=== PATIENT | male | born 1970 | race Two or more races ===

== ENCOUNTER 2021-07-30 08:00 | Outpatient (CLI) | payer OTHER ==
[~2021-07-30 08:00] MED LIST: AVAPRO150 MG PO; SIMVASTATIN10 MG PO; TOPROL XL50 MG PO
== END 2021-07-30 09:00 | disposition home or self-care (01) ==
LOC: PPH VACUNA 08:00
PROVIDERS: ATTEND Emergency Medicine Pediatric Emergency Medicine
DX: Z23 Encounter for immunization (principal)

== ENCOUNTER 2021-10-31 21:50 | Inpatient (IN) | payer OTHER ==
[~2021-10-31] VITALS: Ht 177.8 cm; Wt 84.4 kg
[2021-10-31] MEDS ORDERED: COZAAR100 MG PO (22:09)
--- NOTE | 2021-10-31 22:24 | NUR ---
PACIENTE REFIERE TENGO PALPITACIONES DESDE LAS [id number].
--- NOTE | 2021-10-31 22:25 | NUR ---
SE PRESENTA PRADEEP A DR. MCCALL, SE PRESENTA EKG VITALES Y PRADEEP DE PACIENTE. AL MOMENTO EL MISMO ORDENA UBICAR A PACIENTE EN AREA DE CHEST PAPIN Y SE CONECTA A PACIENTE A MONITOR CARDIACO OXIMETRIA DE PULSO SE UBICA EN CAMA CON BARANDAS ELEVADAS, Y SE ENTREGA EL PRADEEP A RN PARA CONTINUIDAD.
--- NOTE | 2021-10-31 22:37 | NUR ---
PTE EVALUADO POR EL DR. MCCALL QUIEN ORDNEA TX MEDICO. SE ORIENTA A PACIENTE OSBRE TX REFIERE ENTENDER Y SE EJEUCTAN ORDENES MEDICAS. SE MANTIENE EN UNIDAD DE CHEST PAIN, BAJO OBSERVACION CONECTADO A TELEMETRIA Y OXIMETRIA.
--- NOTE | 2021-10-31 23:29 | NUR ---
SE RECIBE PACIENTE ALERTA Y ORIENTADO POR DESIREE EN CAMA #16 AREA DE CHEST PAIN. PACIENTE CONECTADO A MONITOR CARDIACO CON SATUROMETRO CON H/L EN MANO DERECHA ANGIO # 18 PATENTE, AREA ANTELMO DE EDEMA Y/O ERITEMA.SE ORIENTA PACIENTE DE CONTINUIDAD DE TRATAMIENTO JOSE ORDEN MEDICA. REFIERE ENTENDER. SE COMIENZA EN DRIP DE CARDIZEM 100MG EN 100 ML SEGGUN ORDEN MEDICA A 10 MLS/HR Y SE ADMINIS- TRA LOVENOZ. SE MIDEN Y DOCUMENTAN S/V.BARANDAS ELEVADAS POR BOO SEGURIDAD. SE CONTINUA MONITORREANDO POR CAMBIOS SIGNIFICATIVOS.
--- NOTE | 2021-11-01 07:26 | NUR ---
SE RECIBE PTE EN EL AREA DE CRITICO EN EL CUBICULO #18 EN CAMA CON BARANDAS ELEVADA Y TIMBRE ACCESIBLE, CONECTADO A MONITOR Y OXYMETRIA DE PULSO PTE NO PRESETNA DOLOR AL MOMENTO SE OBSERVA VENOPUNCION PATENTE Y ANTELMO DE EDEMA, PTE SE MANTIEN EN OBSERVACION Y BAJO TRATAMIENTO, EN ESPERA DE DRA PINEDA.
== END 2021-11-02 23:55 | disposition left against medical advice (07) | DRG 310 ==
LOC: ER 21:50 → MEDJ 11-01 09:54
PROVIDERS: ADMIT Internal Medicine; ATTEND Internal Medicine
PROC: B24BZZZ Ultrasonography of Heart with Aorta (ICD-10-PCS; principal; 2021-11-01)
PROC: 4A12X4Z Monitoring of Cardiac Electrical Activity, External Approach (ICD-10-PCS; 2021-11-01)
DX: I48.20 Chronic atrial fibrillation, unspecified (principal); R00.2 Palpitations; R07.89 Other chest pain; I10 Essential (primary) hypertension; G47.33 Obstructive sleep apnea (adult) (pediatric)

== ENCOUNTER 2022-11-23 06:01 | Emergency (ER) | payer OTHER ==
[~2022-11-23] VITALS: Ht 177.8 cm; Wt 85.7 kg
[~2022-11-23 06:01] MED LIST changes: +COZAAR100 MG PO
== END 2022-11-23 09:48 | disposition home or self-care (01) ==
LOC: ER 06:01
DX: R10.31 Right lower quadrant pain (principal); N28.1 Cyst of kidney, acquired; K57.30 Diverticulosis of large intestine without perforation or abscess without bleeding; Z88.0 Allergy status to penicillin; Z88.8 Allergy status to other drugs, medicaments and biological substances

== ENCOUNTER 2022-12-04 09:40 | Day surgery (SDC) | payer OTHER ==
[~2022-12-04] VITALS: Ht 177.8 cm; Wt 84.8 kg
== END 2022-12-04 16:55 | disposition home or self-care (01) ==
LOC: CIR.AMB 09:40
PROVIDERS: ATTEND Urology
DX: N20.1 Calculus of ureter (principal); N35.919 Unspecified urethral stricture, male, unspecified site; Z88.0 Allergy status to penicillin; Z20.822 Contact with and (suspected) exposure to COVID-19; I10 Essential (primary) hypertension; F17.210 Nicotine dependence, cigarettes, uncomplicated

== ENCOUNTER 2024-12-31 09:46 | Emergency (ER) | payer OTHER ==
[~2024-12-31] VITALS: Ht 177.8 cm; Wt 81.6 kg
[2024-12-31] MEDS ORDERED: LOSARTAN POTAS100 MG PO (09:59)
[2024-12-31] MEDS ORDERED: METOPROLOL SUC100 MG PO (09:59)
[2024-12-31] MEDS ORDERED: KETOROLAC TROMETHAMINE 60 MG VIAL IM STA (10:18)
[2024-12-31] MEDS ORDERED: KETOROLAC TROMETHAMINE 60 MG VIAL IM ONE (10:45)
[2024-12-31 11:21] LABS: HEMOGLOBIN 15.4 g/dL (13-16.00); MEAN CELL VOLUME 87.2 fL (80.0-100.00); MEAN CORPUSCULAR HEMOGLOBIN 29.9 pg (27.00-32.0); MEAN CORPUSCULAR HGB CONC 34.3 g/dl (32.0-36.0); PLATELET COUNT 136 K/uL (150-450); RED BLOOD COUNT 5.16 M/uL (4.00-6.00)
[2024-12-31 11:53] LABS: CREATININE SERUM 1.07 mg/dL (0.70-1.30); GFR 71.75; POTASSIUM 4.82 mEq/L (3.5-5.1)
[2024-12-31 11:54] LABS: PH,URINE 6.5 (5.0-8.0); URINE APPEARANCE Clear; URINE BILIRRUBIN Negative (NEGATIVE); URINE BLOOD Negative; URINE COLOR Yellow; URINE GLUCOSE Negative (NEGATIVE); URINE KETONE Negative (NEGATIVE); URINE LEUKOCYTE Negative; URINE NITRATE Negative; URINE PROTEIN Negative (NEGATIVE); URINE UROBILINOGEN 0.2 E.U./dl
[2024-12-31 11:57] LABS: URINE WBC 2.6 uL (0.0-23.2)
[2024-12-31 11:58] LABS: URINE BACTERIA 1.2 uL (0.0-1933); URINE EPITHELIAL CELLS 0.3 uL (0.0-38.8); URINE RBC 1.1 uL (0.0-20.8)
== END 2024-12-31 14:09 | disposition home or self-care (01) ==
LOC: ER 09:47
PROVIDERS: General Practice
DX: M54.89 Other dorsalgia (principal); Z88.0 Allergy status to penicillin; I10 Essential (primary) hypertension

== ENCOUNTER 2025-05-11 07:14 | Outpatient (CLI) | payer OTHER ==
[~2025-05-11 07:14] MED LIST changes: +LOSARTAN POTAS100 MG PO; +METOPROLOL SUC100 MG PO
== END 2025-05-11 07:17 | disposition home or self-care (01) ==
LOC: SONOGRAMA 07:14
PROVIDERS: ATTEND Urology
DX: N40.1 Benign prostatic hyperplasia with lower urinary tract symptoms (principal); R97.20 Elevated prostate specific antigen [PSA]

== ENCOUNTER 2025-05-12 16:55 | Inpatient (IN) | payer OTHER ==
[~2025-05-12] VITALS: Ht 177.8 cm; Wt 77.1 kg
[2025-05-12] MEDS ORDERED: 0.9 % SODIUM CHLORIDE 1,000 ML IV STA (17:23)
[2025-05-12] MEDS ORDERED: SODIUM CHLORIDE 0.45 % 1,000 ML IV SCH (17:23)
[2025-05-12] MEDS ORDERED: ACETAMINOPHEN 325 MG TABLET PO STA (17:24)
[2025-05-12] MEDS ORDERED: KETOROLAC TROMETHAMINE 30 MG VIAL IV STA (17:24)
[2025-05-12] MEDS ORDERED: ERTAPENEM SODIUM 1,000 MG VIAL IV STA (17:25)
[2025-05-12] MEDS ORDERED: DIPHENHYDRAMINE HCL 50 MG/ML VIAL 1ML IV STA (17:25)
--- NOTE | 2025-05-12 17:27 | NUR ---
PACIENTE ALERTA Y ORIENTADO X3, REFIERE QUE EL DR. SCANLONO LE REALIZO VERO BIOPSIA DE PROSTATA EN EL MISAEL DE YORDY Y HOY COMENZO CON ESCALOFRIOS Y FIEBRE. SE MONITOREAN VS Y SE UBICA.
[2025-05-12] MEDS ORDERED: ACETAMINOPHEN 325 MG TABLET PO PRN (17:30)
[2025-05-12] MEDS ORDERED: ONDANSETRON HCL 2 MG/ML VIAL IV PRN (17:30)
[2025-05-12] MEDS ORDERED: DIPHENHYDRAMINE HCL 50 MG/ML VIAL 1ML IV PRN (17:30)
[2025-05-12 19:10] LABS: BASO % 0.1 % (0.1-1.2); EOS # 0.02 (0.04-0.54); EOS % 0.2 % (0.7-7.0); LYMPH # 0.35 (1.18-3.74); LYMPH % 4.2 % (19.3-53.1); MEAN PLATELET VOLUME 11.80 fl (9.4-12.4); MONO # 0.08 (0.24-0.82); MONO % 1.0 % (4.7-12.5); NEUT # 7.83 (1.56-6.13); NEUT % 94.3 % (34.0-71.1); RED CELL DISTRIBUTION WIDTH 12.1 % (11.6-14.4)
[2025-05-12 19:28] LABS: INR 1.1
[2025-05-12 19:33] LABS: ALT/SGPT 28.0 U/L (12-78); AST/SGOT 18.0 U/L (15-37); BILIRUBIN TOTAL 0.88 mg/dL (0.3-1.2); BUN CREA RATIO 17.0 (7.0-25.0); CREATININE SERUM 1.24 mg/dL (0.70-1.30); GFR 60.52; GLOBULINA 3.3 G/DL (2.4-3.5); GLUCOSE FASTING 112.0 mg/dL (65-100); OSMOLALITY SERUM 281.0 MOSM/KG (275-295)
[2025-05-12] MEDS ORDERED: TAMSULOSIN HCL 0.4 MG CAP PO SCH (21:00)
[2025-05-12 21:12] LABS: URINE APPEARANCE Cloudy; URINE BILIRRUBIN Negative (NEGATIVE); URINE BLOOD Large; URINE COLOR Yellow; URINE GLUCOSE Negative (NEGATIVE); URINE KETONE Trace (NEGATIVE); URINE LEUKOCYTE Trace; URINE NITRATE Negative; URINE PROTEIN Trace (NEGATIVE); URINE UROBILINOGEN 0.2 E.U./dl
[2025-05-12 21:16] LABS: URINE BACTERIA 214.7 uL (0.0-1933); URINE EPITHELIAL CELLS 8.6 uL (0.0-38.8); URINE RBC 843.4 uL (0.0-20.8); URINE WBC 83.0 uL (0.0-23.2)
[2025-05-12 21:57] LABS: TYPE CELLS SQUAMOUS; URINE CAST 0.29 uL (0.0-1.40)
[2025-05-13 01:07] LABS: COVID-19 AG NEGATIVE (NEGATIVE)
[2025-05-13 01:32] VITALS: BP 77/45; O2SAT 95
[2025-05-13] MEDS ORDERED: MEROPENEM 500 MG/VIAL VIAL IV STA (05:08)
[2025-05-13] MEDS ORDERED: ACETAMINOPHEN 500 MG GEL..CAP PO PRN (05:15)
[2025-05-13 08:00] VITALS: BP 102/65; O2SAT 95
[2025-05-13 10:05] LABS: BASO % 0.1 % (0.1-1.2); EOS # 0.00 (0.04-0.54); EOS % 0.0 % (0.7-7.0); LYMPH # 0.61 (1.18-3.74); LYMPH % 5.9 % (19.3-53.1); MEAN PLATELET VOLUME 11.80 fl (9.4-12.4); MONO # 0.59 (0.24-0.82); MONO % 5.7 % (4.7-12.5); NEUT # 9.17 (1.56-6.13); NEUT % 88.0 % (34.0-71.1); RED CELL DISTRIBUTION WIDTH 12.3 % (11.6-14.4)
[2025-05-13 10:29] LABS: BUN CREA RATIO 19.0 (7.0-25.0); CREATININE SERUM 1.17 mg/dL (0.70-1.30); GFR 64.72; GLUCOSE FASTING 105.0 mg/dL (65-100); OSMOLALITY SERUM 287.0 MOSM/KG (275-295)
[2025-05-13] MEDS ORDERED: MEROPENEM 500 MG/VIAL VIAL IV SCH (12:00)
[2025-05-13 16:00] VITALS: BP 143/78; O2SAT 97
[2025-05-13] MEDS ORDERED: LACTOBACILLUS ACIDOPHILUS 1 CAP CAP PO SCH (17:00)
[2025-05-14 01:20] VITALS: BP 122/76; O2SAT 95
[2025-05-14 07:15] LABS: BASO % 0.1 % (0.1-1.2); EOS # 0.01 (0.04-0.54); EOS % 0.1 % (0.7-7.0); LYMPH # 0.64 (1.18-3.74); LYMPH % 8.8 % (19.3-53.1); MEAN PLATELET VOLUME 12.70 fl (9.4-12.4); MONO # 0.45 (0.24-0.82); MONO % 6.2 % (4.7-12.5); NEUT # 6.17 (1.56-6.13); NEUT % 84.5 % (34.0-71.1); RED CELL DISTRIBUTION WIDTH 12.1 % (11.6-14.4)
[2025-05-14 08:55] LABS: GLUCOSE FASTING 120.0 mg/dL (65-100)
[2025-05-14 08:56] LABS: BUN CREA RATIO 16.0 (7.0-25.0); CREATININE SERUM 0.86 mg/dL (0.70-1.30); GFR 92.32; OSMOLALITY SERUM 279.0 MOSM/KG (275-295)
[2025-05-14 09:51] VITALS: BP 145/80; O2SAT 95
[2025-05-14 12:33] LABS: D DIMER 3.97 MG/L; INR 1.05
[2025-05-14 12:43] LABS: COL EPI 81 SECONDS (82-175)
[2025-05-14 13:31] LABS: FE 32.0 ug/dl (65-175)
[2025-05-14 15:04] LABS: FOLIC ACID 19.36 ng/ml (4.78-20)
[2025-05-14 16:00] VITALS: BP 130/83; O2SAT 97
[2025-05-14 20:00] VITALS: BP 160/85; O2SAT 95
[2025-05-15 02:10] VITALS: BP 129/78; O2SAT 98
[2025-05-15 08:00] VITALS: BP 132/84; O2SAT 96
[2025-05-15 10:24] LABS: BASO % 0.2 % (0.1-1.2); EOS # 0.01 (0.04-0.54); EOS % 0.2 % (0.7-7.0); LYMPH # 0.69 (1.18-3.74); LYMPH % 12.4 % (19.3-53.1); MEAN PLATELET VOLUME 11.40 fl (9.4-12.4); MONO # 0.46 (0.24-0.82); MONO % 8.3 % (4.7-12.5); NEUT # 4.38 (1.56-6.13); NEUT % 78.7 % (34.0-71.1); RED CELL DISTRIBUTION WIDTH 11.9 % (11.6-14.4)
[2025-05-15 16:00] VITALS: BP 152/88; O2SAT 96
[2025-05-16 01:04] VITALS: BP 135/76; O2SAT 97
[2025-05-16 09:00] VITALS: BP 131/83; O2SAT 96
[2025-05-16 13:04] LABS: RED CELL DISTRIBUTION WIDTH 12.0 % (11.6-14.4)
[2025-05-16 13:46] LABS: MEAN PLATELET VOLUME 11.50 fl (9.4-12.4)
[2025-05-16 13:47] LABS: BASO % 0.5 % (0.1-1.2); EOS % 1.6 % (0.7-7.0); LYMPH % 25.7 % (19.3-53.1); MONO % 14.4 % (4.7-12.5); NEUT % 57.3 % (34.0-71.1)
[2025-05-16 13:48] LABS: EOS # 0.07 (0.04-0.54); LYMPH # 1.11 (1.18-3.74); MONO # 0.62 (0.24-0.82); NEUT # 2.48 (1.56-6.13)
[2025-05-16 18:29] VITALS: BP 132/87; O2SAT 97
[2025-05-17 02:28] VITALS: BP 126/71; O2SAT 98
[2025-05-17 16:00] VITALS: BP 134/87; O2SAT 97
[2025-05-18 01:11] VITALS: BP 147/80; O2SAT 96
[2025-05-18 08:00] VITALS: BP 167/94; O2SAT 97
[2025-05-18] MEDS ORDERED: METOPROLOL SUCCINATE 100 MG TAB.SR.24H PO SCH (09:00)
[2025-05-18] MEDS ORDERED: LOSARTAN POTASSIUM 100 MG TABLET PO SCH (09:00)
[2025-05-18 17:19] VITALS: BP 129/75; O2SAT 94
[2025-05-19 01:43] VITALS: BP 125/54; O2SAT 98
[2025-05-19 07:16] LABS: BASO % 0.3 % (0.1-1.2); EOS # 0.13 (0.04-0.54); EOS % 2.1 % (0.7-7.0); LYMPH # 2.11 (1.18-3.74); LYMPH % 34.8 % (19.3-53.1); MEAN PLATELET VOLUME 10.90 fl (9.4-12.4); MONO # 0.42 (0.24-0.82); MONO % 6.9 % (4.7-12.5); NEUT # 3.36 (1.56-6.13); NEUT % 55.6 % (34.0-71.1); RED CELL DISTRIBUTION WIDTH 12.0 % (11.6-14.4)
[2025-05-19 07:47] LABS: ALT/SGPT 68.0 U/L (12-78); AST/SGOT 45.0 U/L (15-37); BILIRUBIN TOTAL 0.52 mg/dL (0.3-1.2); BUN CREA RATIO 18.0 (7.0-25.0); CREATININE SERUM 0.78 mg/dL (0.70-1.30); GFR 103.34; GLOBULINA 2.7 G/DL (2.4-3.5); GLUCOSE FASTING 97.0 mg/dL (65-100); LDH 160.0 U/L (87-241); OSMOLALITY SERUM 287.0 MOSM/KG (275-295)
[2025-05-19 08:00] VITALS: BP 126/79; O2SAT 99
[2025-05-19 16:00] VITALS: BP 132/79; O2SAT 99
[2025-05-20 01:40] VITALS: BP 106/65; O2SAT 98
[2025-05-20 08:00] VITALS: BP 135/72; O2SAT 97
[2025-05-20 16:00] VITALS: BP 142/82; O2SAT 99
[2025-05-21 01:06] VITALS: BP 138/72; O2SAT 98
[2025-05-21 08:15] VITALS: BP 148/90; O2SAT 98
== END 2025-05-21 10:12 | disposition home or self-care (01) | DRG 862 ==
LOC: ER 16:55 → SURH 17:38
PROVIDERS: Internal Medicine Hematology & Oncology; Internal Medicine Infectious Disease; ADMIT Urology; ATTEND Urology
PROC: B246ZZZ Ultrasonography of Right and Left Heart (ICD-10-PCS; principal; 2025-05-13)
DX: T81.44XA Sepsis following a procedure, initial encounter (principal); A41.51 Sepsis due to Escherichia coli [E. coli]; N39.0 Urinary tract infection, site not specified; D69.6 Thrombocytopenia, unspecified; I95.9 Hypotension, unspecified; F17.201 Nicotine dependence, unspecified, in remission; Y84.8 Other medical procedures as the cause of abnormal reaction of the patient, or of later complication, without mention of misadventure at the time of the procedure; Y92.531 Health care provider office as the place of occurrence of the external cause; Z88.0 Allergy status to penicillin; R31.0 Gross hematuria

== ENCOUNTER 2025-05-23 08:20 | Outpatient (CLI) | payer OTHER | END 2025-05-23 08:27 | disposition home or self-care (01) | LOC: SONOGRAMA 08:20 | PROVIDERS: ATTEND Urology | DX: N30.00 Acute cystitis without hematuria (principal) ==

== ENCOUNTER 2025-05-26 08:42 | Emergency (ER) | payer OTHER ==
[~2025-05-26] VITALS: Ht 167.6 cm; Wt 85.7 kg
[2025-05-26] MEDS ORDERED: LIDOCAINE HCL 2% JELLY 6 ML SYRINGE MM ONE ×2 (10:23→10:45)
[2025-05-26] MEDS ORDERED: ERTAPENEM SODIUM 1,000 MG VIAL IV ONE (12:00)
[2025-05-26 12:59] LABS: URINE APPEARANCE Clear; URINE BILIRRUBIN Negative (NEGATIVE); URINE BLOOD Negative; URINE COLOR Yellow; URINE GLUCOSE Negative (NEGATIVE); URINE KETONE Negative (NEGATIVE); URINE LEUKOCYTE Negative; URINE NITRATE Negative; URINE PROTEIN Trace (NEGATIVE); URINE UROBILINOGEN 0.2 E.U./dl
[2025-05-26 13:03] LABS: URINE BACTERIA 26.3 uL (0.0-1933); URINE EPITHELIAL CELLS 1.8 uL (0.0-38.8); URINE RBC 5.2 uL (0.0-20.8); URINE WBC 5.3 uL (0.0-23.2)
[2025-05-26 13:31] LABS: URINE CAST 0.58 uL (0.0-1.40)
== END 2025-05-26 15:35 | disposition home or self-care (01) ==
LOC: ER 08:42
PROVIDERS: Emergency Medicine
DX: N41.8 Other inflammatory diseases of prostate (principal); R30.0 Dysuria; R33.8 Other retention of urine; Z88.0 Allergy status to penicillin; I10 Essential (primary) hypertension

== ENCOUNTER 2025-07-17 15:40 | Outpatient (CLI) | payer OTHER ==
[2025-07-17 16:01] LABS: URINE APPEARANCE Cloudy; URINE BILIRRUBIN Negative (NEGATIVE); URINE BLOOD NHT; URINE COLOR Yellow; URINE GLUCOSE Negative (NEGATIVE); URINE KETONE Negative (NEGATIVE); URINE LEUKOCYTE Large; URINE NITRATE Positive; URINE PROTEIN 30 (NEGATIVE); URINE RBC 16.5 uL (0.0-20.8); URINE UROBILINOGEN 1.0 E.U./dl; URINE WBC 2290.7 uL (0.0-23.2)
[2025-07-17 16:16] LABS: URINE BACTERIA > 9821.5 uL (0.0-1933); URINE CAST 0.00 uL (0.0-1.40); URINE EPITHELIAL CELLS 0.0 uL (0.0-38.8)
== END 2025-07-17 23:00 | disposition home or self-care (01) ==
LOC: LAB 15:40
PROVIDERS: ATTEND Urology
DX: N30.00 Acute cystitis without hematuria (principal)

== ENCOUNTER → 2025-07-24 | Outpatient (CLI) | payer OTHER | END | disposition home or self-care (01) | LOC: SONOGRAMA 14:48 | PROVIDERS: ATTEND Urology | DX: N40.0 Benign prostatic hyperplasia without lower urinary tract symptoms (principal); N20.0 Calculus of kidney; N20.1 Calculus of ureter; R97.20 Elevated prostate specific antigen [PSA] ==